=== PATIENT | female | born 1965 | race Caucasian/White ===

== ENCOUNTER 2020-04-21 14:36 | Emergency (ER) | payer MEDICARE, SELFPAY ==
[2020-04-21 14:50] VITALS: BP 135/88; PULSE 88; RESP 18; TEMP 36.8; O2SAT 99; BMI 41.0
--- NOTE | 2020-04-21 15:29 | XRR_ITS ---
PROCEDURE INFORMATION: Exam: XR Chest, 1 View Exam date and time: 04/21/2020 3:30 PM Age: 55 years old Clinical indication: Cough and shortness of breath; Patient HX: C/O sob/cough; Additional info: Dyspnea/cough TECHNIQUE: Imaging protocol: XR of the chest Views: 1 view. COMPARISON: No relevant prior studies available. FINDINGS: Lungs: The lungs are hyperinflated with mild basilar volume loss and vascular crowding. Pulmonary vascularity is within normal limits. No consolidation. Pleural space: Unremarkable. No pleural effusion. No pneumothorax. Heart/Mediastinum: There is borderline cardiomegaly. Bones/joints: No acute abnormality. XR/XR chest 1V portable [id number] IMPRESSION: No acute findings.
--- NOTE | 2020-04-21 15:30 | ED_ITS ---
HPI - URI/Sore Throat General: Chief Complaint: Upper Respiratory Infection Stated Complaint: cabrera/face pain/n/v Time Seen by Provider: 04/21/20 15:12 History of Present Illness: HPI Narrative: 55-year-old female comes in complaining of sinus congestion and drainage she said intermittently for the last 2 weeks she did have some fever and diarrhea initially however that resolved. She is having a lot of nasal drainage to the point where she throws up at times. She also had some headache and facial pain. She states she frequently has sinus problem. She has been coughing up some clear mucus and occasionally the drainage seems to trigger some vomiting. She tried some various [id number] remedies with no relief MD elicited complaint: fever, cough, nasal congestion and sinus pain Pertinent past history: sinusitis Onset (ago): week(s) Consistency: constant and progressively worsening Severity: moderate Description of mucous: clear Able to tolerate fluids by mouth: Yes Relieving factors: nothing Associated symptoms: Reports chills, congestion, cough, diarrhea (Transient resolved), fever(s) (Initially had subjective fevers resolved), myalgias, nasal congestion, rhinorrhea, sinus pain and vomiting; Deny abdominal pain, change in voice, chest pain, epistaxis or ear or mastoid pain Treatments prior to arrival: cold medicine Review of Systems Const: Reports: fever(s) (Initially had subjective fevers resolved) and chills ENMT: Reports: nasal congestion and sinus pain; Denies: ear or mastoid pain or epistaxis Card: Denies: chest pain Resp: Denies: dyspnea, productive cough or non-productive cough GI: Reports: vomiting and diarrhea (Transient resolved); Denies: abdominal pain : Denies: flank pain, difficulty voiding, dysuria, urinary frequency or urinary urgency Skin/Breast: Denies: rash or pruritus PFSH ED PFSH: Medical History (Updated 04/21/20 @ 16:49 by Edmundo Cabello DO) Chronic back pain Recurrent sinusitis Surgical History (Updated 04/21/20 @ 15:33 by Edmundo Cabello DO) History of hernia surgery Hx of tubal ligation Social History (Updated 04/21/20 @ 15:33 by Edmundo Cabello DO) Smoking and tobacco status: never smoked Alcohol intake: never Physical Exam Const: COMMON NORMALS: no acute distress GENERAL APPEARANCE: cooperative and comfortable ORIENTATION/CONSCIOUSNESS: Yes awake, Yes oriented to person, Yes oriented to place and Yes oriented to time HENMT: COMMON NORMALS: normocephalic, atraumatic and hearing grossly normal bilaterally HEAD & SCALP: normocephalic and atraumatic Neck/C-Spine: COMMON NORMALS: no JVD Resp: AUSCULTATION: rhonchi right upper Cardio: COMMON NORMALS: no JVD, regular rate, regular rhythm and No murmurs present (Cardio) RATE: regular rate RHYTHM: regular rhythm GI: COMMON NORMALS: Soft to palpation and No hepatosplenomegaly present AUSCULTATION: Yes normoactive bowel sounds PALPATION: Yes Soft to palpation, No Tenderness to palpation present (GI), No Guarding due to palpation present (GI) and Yes No hepatosplenomegaly present Extremity: COMMON NORMALS: normal to inspection, capillary refill normal, no clubbing, cyanosis or edema, no calf tenderness and no pedal edema Neuro: SENSORIUM/ORIENTATION: Yes oriented to person, Yes oriented to place and Yes oriented to time Skin: COMMON NORMALS: no rashes or lesions noted GENERAL SKIN EXAM: no rashes or lesions noted Course Vital Signs: Vital signs: Vital Signs Temperature 98.2 F 04/21/20 14:50 Pulse Rate 88 04/21/20 14:50 Respiratory Rate 18 04/21/20 14:50 Blood Pressure 135/88 04/21/20 14:50 Pulse Oximetry 99 04/21/20 14:50 MDM - URI/Sore Throat MDM Narrative: Medical decision making narrative: Patient had a visitor with her. Once the order was given for COVID swab visitor was asked to leave. He was then asked 2 more times to leave by the staff and he refused.. She told the nurses that if the visitor was not allowed to stay he would also she would also leave. Staff attempted to convince her to stay she left the way without the opportunity for me to discuss with her. Patient essentially eloped from the emergency room we are unable to find her to get her signed AMA papers nurses trying to contact her because she left with an IV in site. Lab Data: Labs: Lab Results 04/21/20 Range/Units 16:05 WBC 5.3 (4.0-10.0) 10^3/ uL RBC 4.60 (4.1-5.3) 10^6/u L Hgb 14.1 (11.5-15.3) g/dL Hct 42.6 (37.0-47.0) % MCV 92.6 (81-99) fL MCH 30.7 (28.0-34.0) pg MCHC 33.1 (30.0-36.0) g/dL RDW 12.7 (12.1-15.1) % Plt Count 247 (130-400) 10^3/c mm MPV 11.3 H (7.4-10.4) fL Neut % (Auto) 51.4 % Lymph % (Auto) 39.8 % [place] % (Auto) 7.6 % Eos % (Auto) 0.8 % Baso % (Auto) 0.2 % Neut # (Auto) 2.70 (1.8-7.7) 10^3/u L Lymph # (Auto) 2.1 (0.8-4.8) 10^3/u L [place] # (Auto) 0.4 (0.2-0.9) 10^3/u L Eos # (Auto) 0.0 (0.0-0.8) 10^3/u L Baso # (Auto) 0.0 (0.0-0.1) 10^3/u L Nucleated RBC % (a uto) 0 % Nucleated RBCs # 0.0 /100WBC Discharge Plan Discharge Patient Disposition: Left Against Medical Advice Clinical Impression: Upper respiratory infection Condition: Stable Coding Level of Care Code ED Sales And Marketing Executive for [facility] Fwd Exam Comprehensive
[2020-04-21 16:16] LABS: Basophils % 0.2 %; Eosinophils % 0.8 %; Hematocrit 42.6 % (37.0-47.0); Hemoglobin 14.1 g/dL (11.5-15.3); Lymphocytes # 2.1 10^3/uL (0.8-4.8); Lymphocytes % 39.8 %; Mean Corpuscular HGB Conc 33.1 g/dL (30.0-36.0); Mean Corpuscular Hemoglobin 30.7 pg (28.0-34.0); Mean Corpuscular Volume 92.6 fL (81-99); Mean Platelet Volume 11.3 fL (7.4-10.4); Monocytes # 0.4 10^3/uL (0.2-0.9); Monocytes % 7.6 %; Neutrophils % 51.4 %; Nucleated Red Blood Cells % 0 %; Platelet Count 247 10^3/cmm (130-400); Red Cell Distribution Width 12.7 % (12.1-15.1); White Blood Count 5.3 10^3/uL (4.0-10.0)
--- NOTE | 2020-04-21 16:44 | PC.NURSE ---
Pt is under COVID precautions for being swabbed, pt visitor has been asked multiple times to leave per hospital policy. Pt states absolutely not he is not leaving. We eat after each other, we drink after each other and when I leave it will be with him. Pt educated again on hospital policy that anyone under PUI cannot have a visitor. Pt then stated if he leaves, then I'm going to leave too . Pt advised to stay for completion of treatment, pt very angry and declined. Pt instructed not to leave with the IV in her arm, pt left anyways and was very belligerant. Dr Cabello notified, attempts to stop pt from leaving with IV unsuccessful.
--- NOTE | 2020-04-21 16:58 | PC.NURSE ---
Pt left AMA at 1645, unable to find IV catheter in room, charge entry notified.
[2020-04-21 17:02] LABS: Alanine Aminotransferase 19 U/L (0-33); Albumin Level 4.4 g/dL (3.5-5.2); Alkaline Phosphatase 84 IU/L (35-105); Anion Gap 14.5 (5-19); Aspartate Amino Transferase 24 U/L (0-32); Blood Urea Nitrogen 14 mg/dL (6-20); Calcium 9.1 mg/dL (8.5-10.5); Carbon Dioxide 23 mmol/L (22-29); Chloride 107 mmol/L (98-107); Globulin 2.9 g/dL (1.3-4.6); Glucose 107 mg/dL (65-115); Osmolality Calculated 293 mOsm/kg (285-295); Potassium 3.5 mmol/L (3.5-5.1); Sodium 141 mmol/L (136-145); Total Bilirubin 0.6 mg/dL (0.15-1.2); Total Protein 7.3 g/dL (6.6-8.7)
[2020-04-25 03:33] LABS: Quest SARS-CoV-2 RNA DETECTED (NOT DETECTED)
== END 2020-04-21 16:59 | disposition left against medical advice (07) ==
PROVIDERS: Emergency Provider Family Medicine
DX: J06.9 Acute upper respiratory infection, unspecified (principal); Z53.21 Procedure and treatment not carried out due to patient leaving prior to being seen by health care provider; U07.1 COVID-19
CPT/HCPCS: 12345; 71045; 80053; 85025; 87635; 99282; 99283

== ENCOUNTER 2022-04-26 13:20 | Emergency (ER) | payer MEDICARE, SELFPAY ==
[2022-04-26 14:05] VITALS: BP 107/67; PULSE 86; RESP 18; TEMP 36.5; O2SAT 99; BMI 22.0
--- NOTE | 2022-04-26 16:00 | ED_ITS ---
HPI - General Adult General: Chief complaint: General Medical Stated complaint: Cat scratch injury Time Seen by Provider: 04/26/22 15:59 History of Present Illness: 57-year-old female comes in today with concerns of lymph swelling to the left axilla. Patient reports feeling ill about 2 weeks ago and then noticing the lymph swelling. Patient was evaluated in the emergency department of another facility and was recommended to have a biopsy of the lymph node. Patient believes that this is more apt to be an infection and wishes to be evaluated further for infection versus having the biopsy. Patient appears nontoxic. Patient had taken 3 days worth of Cipro. Patient states that she has had tick bites and also has cats and is concerned for's cat scratch fever. Associated symptoms: Deny chest pain, dyspnea, nausea or vomiting Review of Systems Const: Reports: fever(s) and body aches Card: Denies: chest pain Resp: Denies: dyspnea GI: Denies: nausea or vomiting Jose/Lymph: Reports: enlarged lymph nodes [facility] ED PFSH: Medical History (Updated 04/26/22 @ 16:10 by MARLEY Gilmore) Chronic back pain Recurrent sinusitis Surgical History (Updated 04/21/20 @ 15:33 by Edmundo Cabello DO) History of hernia surgery Hx of tubal ligation Social History (Updated 04/21/20 @ 15:33 by Edmundo Cabello DO) Smoking and tobacco status: never smoked Alcohol intake: never Physical Exam Const: COMMON NORMALS: alert HENMT: COMMON NORMALS: normocephalic HEAD & SCALP: normocephalic Neck/C-Spine: COMMON NORMALS: full ROM Lymph: LYMPHATIC: lymphadenopathy (Left axilla) Resp: COMMON NORMALS: normal respiratory effort Cardio: COMMON NORMALS: regular rate RATE: regular rate Extremity: COMMON NORMALS: normal to inspection Neuro: SENSORIUM/ORIENTATION: Yes alert Skin: COMMON NORMALS: turgor normal GENERAL SKIN EXAM: turgor normal Course Vital Signs: Vital signs: Vital Signs Temperature 97.7 F 04/26/22 14:05 Pulse Rate 86 04/26/22 14:05 Respiratory Rate 18 04/26/22 14:05 Blood Pressure 107/67 04/26/22 14:05 Pulse Oximetry 99 04/26/22 14:05 Oxygen Delivery Me thod 04/26/22 14:05 MDM - General Adult Medical Decision Making 57-year-old female comes in today for concerns of lymph swelling to the left axilla. Patient was concern for cat scratch fever. On exam patient has a tender enlarged lymph node to the left axilla. Patient moves all extremities well. No other signs of infection or abnormality was noted. Patient had reported some prior flulike symptoms before discovering the lymph swelling. Differential diagnosis includes but not limited to reactive lymph node due to infection, lymphoma, other cancer. CBC was unremarkable. Outstanding labs will be a Bartonella and tick panel. We will go ahead and start patient on doxycycline 100 mg twice a day for 14 days. Reviewed reasoning behind the biopsy with the patient that it may be still within her best interest to get the biopsy for further evaluation. Patient reported understanding and agreed to plan and will follow-up with primary care or specialist. Lab Data : 04/26/22 16:15 04/26/22 16:15 Laboratory Results WBC 6.6 10^3/uL (4.0-10.0) 04/26/22 16:15 RBC 4.30 10^6/uL (4.1-5.3) 04/26/22 16:15 Hgb 13.5 g/dL (11.5-15.3) 04/26/22 16:15 Hct 40.5 % (37.0-47.0) 04/26/22 16:15 MCV 94.2 fl (81-99) 04/26/22 16:15 MCH 31.4 pg (28.0-34.0) 04/26/22 16:15 MCHC 33.3 g/dL (30.0-36.0) 04/26/22 16:15 RDW 12.4 % (12.1-15.1) 04/26/22 16:15 Plt Count 351 10^3/cmm (130-400) 04/26/22 16:15 MPV 10.8 fL (7.4-10.4) H 04/26/22 16:15 Neut % (Auto) 59.5 % 04/26/22 16:15 Lymph % (Auto) 31.0 % 04/26/22 16:15 [place] % (Auto) 6.7 % 04/26/22 16:15 Eos % (Auto) 2.0 % 04/26/22 16:15 Baso % (Auto) 0.6 % 04/26/22 16:15 Neut # (Auto) 3.94 10^3/uL (1.8-7.7) 04/26/22 16:15 Lymph # (Auto) 2.1 10^3/uL (0.8-4.8) 04/26/22 16:15 [place] # (Auto) 0.4 10^3/uL (0.2-0.9) 04/26/22 16:15 Eos # (Auto) 0.1 10^3/uL (0.0-0.8) 04/26/22 16:15 Baso # (Auto) 0.0 10^3/uL (0.0-0.1) 04/26/22 16:15 Nucleated RBC % (auto) 0 % 04/26/22 16:15 Nucleated RBCs # 0.0 /100WBC 04/26/22 16:15 Discharge Plan Discharge Patient Disposition: Home Clinical Impression: Lymphadenopathy Condition: Stable Prescriptions: New doxycycline monohydrate 100 mg capsule 100 mg PO BID 14 Days Qty: 28 0RF Discharge Orders: Discharge ED (Routine); Ordered 04/26/22 Ordered By: Hong De La Torre Patient Instructions: Lymphadenopathy (ED) Activity Restrictions/Additional Instructions: Take antibiotic as directed. Drink plenty of water with medication. Follow-up with primary care for further instruction. Return to ER for new concerns. Coding Level of Care Code ED Research Physician for [facility]
[2022-04-26 16:24] LABS: Basophils % 0.6 %; Eosinophils # 0.1 10^3/uL (0.0-0.8); Hematocrit 40.5 % (37.0-47.0); Hemoglobin 13.5 g/dL (11.5-15.3); Lymphocytes # 2.1 10^3/uL (0.8-4.8); Mean Corpuscular HGB Conc 33.3 g/dL (30.0-36.0); Mean Corpuscular Hemoglobin 31.4 pg (28.0-34.0); Mean Corpuscular Volume 94.2 fl (81-99); Mean Platelet Volume 10.8 fL (7.4-10.4); Monocytes # 0.4 10^3/uL (0.2-0.9); Monocytes % 6.7 %; Neutrophils # 3.94 10^3/uL (1.8-7.7); Neutrophils % 59.5 %; Nucleated Red Blood Cells % 0 %; Platelet Count 351 10^3/cmm (130-400); Red Cell Distribution Width 12.4 % (12.1-15.1); White Blood Count 6.6 10^3/uL (4.0-10.0)
[2022-04-26 16:45] LABS: Alanine Aminotransferase 8 U/L (0-33); Albumin Level 4.1 g/dL (3.5-5.2); Alkaline Phosphatase 86 U/L (35-105); Anion Gap 12.3 (5-19); Aspartate Amino Transferase 9 U/L (0-32); Blood Urea Nitrogen 7 mg/dL (6-20); Calcium 9.5 mg/dL (8.5-10.5); Carbon Dioxide 25 mmol/L (22-29); Chloride 95 mmol/L (98-107); Globulin 3.3 g/dL (1.3-4.6); Glomerular Filtration Rate 163.4 mL/min (90-130); Glucose 90 mg/dL (65-115); Osmolality Calculated 266 mOsm/kg (285-295); Potassium 3.3 mmol/L (3.5-5.1); Sodium 129 mmol/L (136-145); Total Bilirubin 0.2 mg/dL (0.15-1.2); Total Protein 7.4 g/dL (6.6-8.7)
[2022-04-28 14:22] LABS: Lyme AB Screen <0.90 index
[2022-05-01 15:36] LABS: RMSF IGG DETECTED; RMSF IGM NOT DETECTED
[2022-05-01 21:48] LABS: E. Chaffeensis AB IGG <1:64; E. Chaffeensis AB IGM <1:20
[2022-05-03 20:13] LABS: Bartonella Henselae IgG AB NEGATIVE; Bartonella Henselae IgM AB NEGATIVE; Bartonella Quintana IgG AB NEGATIVE
[2023-04-07 18:16] LABS: Bartonella Quintana IgM AB NEGATIVE
== END 2022-04-26 16:31 | disposition home or self-care (01) ==
PROVIDERS: Emergency Provider Nurse Practitioner Family
DX: R59.1 Generalized enlarged lymph nodes (principal)
CPT/HCPCS: 80053; 85025; 86611; 86618; 86666; 86757; 99283

== ENCOUNTER 2022-04-28 16:46 | Emergency (ER) | payer MEDICARE, SELFPAY ==
[2022-04-28 17:00] VITALS: BP 115/60; PULSE 74; RESP 16; TEMP 36.6; O2SAT 98; BMI 22.4
--- NOTE | 2022-04-28 19:03 | W.ED.GENADLT ---
HPI - General Adult General: Chief complaint: General Medical Stated complaint: Return visit, infection Time Seen by Provider: 04/28/22 19:03 History of Present Illness: 57-year-old female comes in today for concerns of sinus pressure, left side facial tenderness, and malaise. Patient was seen on Thursday and blood work was taken for cat scratch fever and a tick panel. Patient reports that she felt worse so she came back to be evaluated again. Patient appears nontoxic. Patient appears mildly unwell. Patient appears in no pain. Associated symptoms: Reports headache(s) and nausea; Deny dyspnea Review of Systems ENMT: Reports: sinus pain Resp: Denies: dyspnea GI: Reports: nausea Neuro: Reports: headache(s) PFSH ED PFSH: Medical History (Updated 04/28/22 @ 21:55 by MARLEY Gilmore) Chronic back pain Recurrent sinusitis Surgical History (Updated 04/21/20 @ 15:33 by Edmundo Cabello DO) History of hernia surgery Hx of tubal ligation Social History (Updated 04/21/20 @ 15:33 by Edmundo Cabello DO) Smoking and tobacco status: never smoked Alcohol intake: never Physical Exam Const: COMMON NORMALS: alert HENMT: COMMON NORMALS: normocephalic HEAD & SCALP: normocephalic Resp: COMMON NORMALS: normal respiratory effort and clear to auscultation bilaterally AUSCULTATION: clear to auscultation bilaterally Cardio: COMMON NORMALS: regular rate and regular rhythm RATE: regular rate RHYTHM: regular rhythm : COMMON NORMALS: Yes no CVA tenderness BLADDER/KIDNEY EXAM: Yes no CVA tenderness Back/Pelvis: COMMON NORMALS: no CVA tenderness Extremity: COMMON NORMALS: full ROM Neuro: SENSORIUM/ORIENTATION: Yes alert Skin: COMMON NORMALS: no rashes or lesions noted GENERAL SKIN EXAM: no rashes or lesions noted Course Vital Signs: Vital signs: Vital Signs Temperature 97.8 F 04/28/22 17:00 Pulse Rate 74 04/28/22 17:00 Respiratory Rate 16 04/28/22 17:00 Blood Pressure 115/60 04/28/22 17:00 Pulse Oximetry 98 04/28/22 17:00 Oxygen Delivery Me thod 04/28/22 17:00 MDM - General Adult Medical Decision Making 57-year-old female comes in today for complaints of left side facial pain along with malaise. Patient was seen 2 days ago and was evaluated for tickborne illness and cat scratch fever with lab testing. Patient was started on doxycycline but since being on doxycycline she has felt more ill with nasal drainage and sinus pressure. On exam bilateral TMs are clear. Posterior pharynx shows some clear drainage. Patient does have some left side facial tenderness. Differential diagnosis includes dehydration, migraine, sinus headache, upper respiratory infection. Review of the record noted that patient had some low sodium and potassium on Thursday labs. Concern the patient's electrolytes may have worsened we went ahead and gave her 1 L of saline to correct dehydration and evaluated labs BMP, CRP and TSH. TSH was unremarkable. BMP showed him significant improvement in sodium and potassium. CRP was 3.0. No concern for temporal arteritis as temporal artery was nontender to palpation and CRP was low. Suspect may be a sinus headache versus migraine. Patient some improvement after fluids and medication but continued to have pressure in that left sinus. Hopefully patient will have some improvement with the dose of steroid we given her through the IV. Recommended continuing doxycycline and recheck regarding the outstanding labs. Patient stated understanding and agreed to plan. Lab Data : 04/28/22 20:55 Laboratory Results Sodium 136 mmol/L (136-145) 04/28/22 20:55 Potassium 3.8 mmol/L (3.5-5.1) 04/28/22 20:55 Chloride 105 mmol/L (98-107) 04/28/22 20:55 Carbon Dioxide 21 mmol/L (22-29) L 04/28/22 20:55 Anion Gap 13.8 (5-19) 04/28/22 20:55 BUN 13 mg/dL (6-20) 04/28/22 20:55 Creatinine 0.4 mg/dL (0.5-0.9) L 04/28/22 20:55 GFR Calculation 163.4 mL/min (90-130) H 04/28/22 20:55 Glucose 83 mg/dL (65-115) 04/28/22 20:55 Calculated Osmolality 281 mOsm/kg (285-295) L 04/28/22 20:55 Calcium 9.3 mg/dL (8.5-10.5) 04/28/22 20:55 C-Reactive Protein 3.0 mg/L (0.0-4.9) 04/28/22 20:55 TSH 5.59 uIU/mL (0.27-4.20) H 04/28/22 20:55 Influenza Type A Ag negative (Negative) 04/28/22 19:30 Influenza Type B Ag negative (Negative) 04/28/22 19:30 SARS-CoV-2 Ag (Rapid) negative (Negative) 04/28/22 19:30 Discharge Plan Discharge Patient Disposition: Home Clinical Impression: Dehydration Headache Qualifiers: Headache type: unspecified Headache chronicity pattern: acute headache Intractability: not intractable Qualified Code(s): R51.9 - Headache, unspecified Condition: Stable Prescriptions: No Action doxycycline monohydrate 100 mg capsule 100 mg PO BID 14 Days Qty: 28 0RF Discharge Orders: Discharge ED (Routine); Ordered 04/28/22 Ordered By: Hong De La Torre Discharge Diet: Usual diet Discharge Activity: Increase activity as tolerated Patient Instructions: Acute Headache (ED) Activity Restrictions/Additional Instructions: Continue with antibiotic. Activity as tolerated. Follow-up with primary care in 1 to 3 days for recheck. Return to ED for new concerns. Coding Level of Care Code ED [place] [place] Sewer for [facility]
[2022-04-28 20:00] LABS: Influenza A by IFA negative (Negative); Influenza B by IFA negative (Negative)
[2022-04-28 20:01] LABS: SARS Covid-2 Antigen negative (Negative)
[2022-04-28] MEDS: ketorolac 30 mg/mL INJ 15 MG IVP (20:29)
[2022-04-28] MEDS: dexamethasone 10 mg/mL INJ 6 MG IVP (20:29)
[2022-04-28] MEDS: sodium chloride 0.9% 1,000 ML 999 ML IV (20:29)
[2022-04-28] MEDS: ondansetron 2 mg/ML SDV 2 mL 4 MG IVP (20:29)
[2022-04-28 21:35] LABS: Blood Urea Nitrogen 13 mg/dL (6-20); Calcium 9.3 mg/dL (8.5-10.5); Carbon Dioxide 21 mmol/L (22-29); Chloride 105 mmol/L (98-107); Glomerular Filtration Rate 163.4 mL/min (90-130); Glucose 83 mg/dL (65-115); Osmolality Calculated 281 mOsm/kg (285-295); Sodium 136 mmol/L (136-145); Thyroid Stimulating Hormone 5.59 uIU/mL (0.27-4.20)
[2022-04-28 21:45] LABS: Anion Gap 13.8 (5-19); Potassium 3.8 mmol/L (3.5-5.1)
== END 2022-04-28 22:05 | disposition home or self-care (01) ==
PROVIDERS: Emergency Provider Nurse Practitioner Family
DX: R51.9 Headache, unspecified (principal); E86.0 Dehydration; Z20.822 Contact with and (suspected) exposure to COVID-19
CPT/HCPCS: 80048; 84443; 86140; 87426; 87804; 96361; 96374; 96375; 99284; J1100; J1885; J2405; J7030

== ENCOUNTER → 2022-05-14 12:21 | Outpatient (BNVA) | payer MEDICARE, SELFPAY | PROVIDERS: Visit Provider Family Medicine | DX: R59.0 Localized enlarged lymph nodes (principal); E03.9 Hypothyroidism, unspecified; R79.89 Other specified abnormal findings of blood chemistry; Z12.31 Encounter for screening mammogram for malignant neoplasm of breast; E87.1 Hypo-osmolality and hyponatremia | CPT/HCPCS: 80053; 84439; 84443; 85025 ==

== ENCOUNTER 2022-05-18 16:58 | Emergency (ER) | payer MEDICARE, SELFPAY ==
[2022-05-18 17:03] VITALS: BMI 23.4
[2022-05-18 17:19] VITALS: BP 95/65; PULSE 80; RESP 20; TEMP 36.7; O2SAT 99
--- NOTE | 2022-05-18 17:22 | ED_ITS ---
HPI - Fever General: Chief Complaint: Fever Stated Complaint: Fever, Nausea, Cold chills, Head pain Time Seen by Provider: 05/18/22 17:14 History of Present Illness: 57-year-old female comes in today with complaints of sinus symptoms and fever starting today. Patient reports a temperature up to 103. Patient appears unwell but not toxic. Patient also reports some redness to a swelling under her left axilla. Patient has been seen for this area approximately 1 month ago and at that time had lab for tick panels and Bartonella. Bartonella was negative at the time. Patient did test positive for [place] spotted fever. Patient reports that she has noticed some redness to the axillary node. Associated symptoms: Reports sinus pain; Deny chest pain, nausea or vomiting Review of Systems Const: Denies: fever(s) ENMT: Reports: epistaxis and sinus pain Card: Denies: chest pain Resp: Denies: dyspnea GI: Denies: nausea or vomiting : Denies: difficulty voiding Skin/Breast: Denies: rash PFSH ED PFSH: Medical History Chronic back pain Hypothyroid Recurrent sinusitis Surgical History History of hernia surgery Hx of tubal ligation Family History (Updated 05/14/22 @ 11:57 by Gordon Araiza MD) Mother CAD (coronary artery disease) Lung disease Cancer parotid gland tumor breast lumps Father Cancer hepatic cancer Family/Other Cancer breast CA Social History (Updated 05/14/22 @ 11:57 by Gordon Araiza MD) Smoking and tobacco status: never smoked Alcohol intake: never Female Reproductive History: Date of menopause: 07/16/16 Physical Exam Const: COMMON NORMALS: alert HENMT: COMMON NORMALS: TM's normal bilaterally FACE & SINUS: Facial tenderness on exam of face and sinuses NOSE: Nasal discharge present TYMPANIC MEMBRANE: TM's normal bilaterally THROAT: posterior oropharynx abnormal erythema (Mild, light drainage) Eye: GENERAL EYE: appearance normal, both eyes and all related structures Resp: COMMON NORMALS: normal respiratory effort Cardio: COMMON NORMALS: regular rate RATE: regular rate GI: COMMON NORMALS: Soft to palpation PALPATION: Yes Soft to palpation : COMMON NORMALS: Yes no CVA tenderness BLADDER/KIDNEY EXAM: Yes no CVA tenderness Back/Pelvis: COMMON NORMALS: no CVA tenderness Extremity: LEFT UPPER EXTREMITY: Yes shoulder joint (Axilla has a enlarged mass with some centralized erythema) Neuro: SENSORIUM/ORIENTATION: Yes alert Skin: COMMON NORMALS: no rashes or lesions noted GENERAL SKIN EXAM: no rashes or lesions noted Course ED course: 1819, patient continues to have some light sensitivity and headache with her sinus pressure. I went ahead and ordered her 10 mg of Reglan p.o. in the event that this may be a migraine type headache patient is having. Patient agreed to plan. Vital Signs: Vital signs: Vital Signs Temperature 98.0 F 05/18/22 17:19 Pulse Rate 75 05/18/22 18:32 Respiratory Rate 18 05/18/22 18:32 Blood Pressure 95/65 05/18/22 17:19 Pulse Oximetry 97 05/18/22 18:32 Oxygen Delivery Me thod 05/18/22 17:19 MDM - Fever Medical Decision Making 57-year-old female comes in today with complaints of sinus headache and fever. Patient also reports some redness to the enlarged node to the left axilla. On exam patient has some mild drainage in the nostrils along with some postnasal drip. Tenderness is noted in the maxillary sinuses on palpation. Bilateral TMs are normal. Lungs have some inspiratory wheezing. Vital signs are normal. Examination of the axilla notes a lymph node that has grown since I had seen it back in the middle of April and now demonstrates some erythema centrally with tenderness. Differential diagnosis includes upper respiratory infection, influenza, COVID-19, upper respiratory infection rhinosinusitis. Differential diagnosis for the enlarged lymph node includes lymphadenitis, cancer, abscess. We will start patient on doxycycline due to the erythema and concern for infection in the lymph node area. I also placed for case management to have patient follow-up with surgeon for incision and drainage versus excision of the mass. Patient was agreeable to the plan. Doxycycline should cover for a rhinosinusitis. Patient was also given some ondansetron for nausea related to the antibiotic. Lab Data Radiology Impressions Chest X-Ray 05/18/22 17:38 IMPRESSION: No acute findings. Laboratory Results Influenza Type A Ag negative (Negative) 05/18/22 17:57 Influenza Type B Ag negative (Negative) 05/18/22 17:57 SARS-CoV-2 Ag (Rapid) negative (Negative) 05/18/22 17:57 Discharge Plan Discharge Patient Disposition: Home Clinical Impression: Acute rhinosinusitis, Lymphadenitis Condition: Stable Prescriptions: New doxycycline monohydrate 100 mg capsule 100 mg PO BID 10 Days Qty: 20 0RF ondansetron HCl 4 mg tablet 4 mg PO Q8H PRN (Reason: nausea and vomiting) Qty: 20 0RF No Action medical marijuana inhalation PRN hydrocodone-acetaminophen 5-325 mg tablet 1 tab PO Q4H PRN (Reason: pain) 7 Days Qty: 28 0RF hydroxyzine HCl 50 mg tablet 50 mg PO Q6H PRN (Reason: nausea and vomiting) Qty: 60 0RF Discharge Orders: Discharge ED (Routine); Ordered 05/18/22 Ordered By: Hong De La Torre Referrals: Gordon Araiza MD [Primary Care Provider] - Patient Instructions: Lymphadenitis Activity Restrictions/Additional Instructions: Take doxycycline 100 mg twice a day for the next 10 days. Drink plenty of water with medication. Case management will contact you regarding a follow-up appointment with a surgeon for further treatment of enlarged lymph node. Follow-up with primary care as needed. Return to ED for worsening symptoms such as inability to hold fluids down, uncontrolled pain, increasing redness and swelling of the arm. Coding Level of Care Code ED Early Childhood Teacher Assistant for [facility] Exam Comprehensive
--- NOTE | 2022-05-18 17:38 | XRR_ITS ---
PROCEDURE INFORMATION: Exam: XR Chest Exam date and time: 05/18/2022 6:43 PM Age: 57 years old Clinical indication: Cough and fever and wheezing; Additional info: Cough, fever, wheezing TECHNIQUE: Imaging protocol: Radiologic exam of the chest. Views: 1 view. COMPARISON: CR XR chest 1V portable [id number] 04/21/2020 4:12 PM FINDINGS: Lungs: Unremarkable. No consolidation. Pleural spaces: Unremarkable. No pleural effusion. No pneumothorax. Heart/Mediastinum: Unremarkable. No cardiomegaly. Bones/joints: Unremarkable. XR/XR chest 1V portable [id number] IMPRESSION: No acute findings.
[2022-05-18] MEDS: ondansetron 4 MG Tablet PO (17:55)
[2022-05-18] MEDS: doxycycline 100 mg Tablet PO (17:55)
[2022-05-18 18:20] LABS: Influenza A by IFA negative (Negative); Influenza B by IFA negative (Negative)
[2022-05-18 18:21] LABS: SARS Covid-2 Antigen negative (Negative)
[2022-05-18] MEDS: metoclopramide 10 mg Tablet PO (18:30)
[2022-05-18 18:32] VITALS: PULSE 75; RESP 18; O2SAT 97
--- NOTE | 2022-05-19 11:47 | DCPLANNER ---
Addendum entered by Marilynn Ordonez 05/22/22 16:38: Patient had a follow up appointment scheduled with general surgery - patient did attend appointment. Original Note: brood hatchery manager had message to schedule a follow up appointment for patient with general surgery. brood hatchery manager sent patients information to the front office staff at general surgery. Patients information will be printed and reviewed. Clinic will call patient with appointment information.
== END 2022-05-18 18:34 | disposition home or self-care (01) ==
PROVIDERS: Emergency Provider Nurse Practitioner Family; PCP Family Medicine
DX: J01.90 Acute sinusitis, unspecified (principal); I88.9 Nonspecific lymphadenitis, unspecified
CPT/HCPCS: 71045; 87426; 87804; 99283; J8597; Q0162

== ENCOUNTER → 2022-05-20 11:50 | Outpatient (BNVA) | payer MEDICARE, SELFPAY | PROVIDERS: PCP Family Medicine; Visit Provider Surgery | DX: R22.32 Localized swelling, mass and lump, left upper limb (principal) | CPT/HCPCS: 99203 ==

== ENCOUNTER 2022-05-22 08:09 | Day surgery (SDC) | payer MEDICARE, SELFPAY ==
[2022-05-21 10:06] VITALS: BMI 24.4
[2022-05-22] VITALS (15 sets, daily range): BP systolic 96–130; BP diastolic 45–77; PULSE 65–88; RESP 13–24; TEMP 36.6–36.8; O2SAT 97–100
[2022-05-22] MEDS: sodium chloride 0.9% 1,000 ML 30 ML IV (08:32)
--- NOTE | 2022-05-22 09:34 | ANES.PREANE2 ---
Pre-Anesthetic Assessment Height/Weight: Height 1.52 m Weight 56.699 kg Temp Pulse Resp BP Pulse Ox O2 Del Method 98.2 F 74 18 96/45 98 05/22/22 08:21 05/22/22 08:21 05/22/22 08:21 05/22/22 08:21 05/22/22 08:21 05/22/22 08:22 Preop Diagnosis: left axillary lymphadenopathy Operation Date: 05/22/22 09:45 Pro[place] Procedures p [id number] excision of left axillary massR22.32(Not Applicable) - Gil Garcia DO Familial anesthetic complications: none Was Beta Hyun taken within 24 hours: N/A Was Clonidine taken within 24 hours: N/A Last intake: Intake Last Liquid Date 05/21/22 Last Liquid Time 22:00 Last Solid Date 05/21/22 Last Solid Time 19:00 Social Tobacco (Smokes marty ) and No alcohol Exam alert, oriented x 3 and regular rate & rhythm Airway Submandibular: within normal limits Cervical ROM: within normal limits Mallampati: Class II Dentition: false Metabolic Thyroid Disease Anesthetic Plan ASA status: 2 Anesthesia: Choice Medications/Allergies Home Medications Medication Instructions Recorded Confirmed Last Taken Type hydrocodone 5 mg-acetaminophen 325 1 tab PO Q4H PRN pain 7 days #28 05/12/22 05/22/22 05/22/22 05:30 Rx mg tablet tabs hydroxyzine HCl 50 mg tablet 50 mg PO Q6H PRN nausea and 05/12/22 05/22/22 05/22/22 05:30 Rx vomiting #60 tabs medical marijuana 100 ml inhalation PRN PRN Pain 05/14/22 05/20/22 Unknown History doxycycline monohydrate 100 mg 100 mg PO BID 10 days #20 caps 05/18/22 05/22/22 05/21/22 Rx capsule ondansetron HCl 4 mg tablet 4 mg PO Q8H PRN nausea and 05/18/22 05/22/22 05/21/22 Rx vomiting #20 tabs Allergies Allergy/AdvReac Type Severity Reaction Status Date / Time No Known Allergies Allergy Verified 05/21/22 10:03 Current Medications Generic Name Dose Route Start Last Admin Trade Name Freq PRN Reason Stop Dose Admin Sodium Chloride 1,000 mls @ 30 mls/hr 05/22/22 08:30 05/22/22 08:32 Sodium Chloride 0.9% IV 05/23/22 08:29 30 mls/hr .Q24H ALTAF Administration PFSH Anesthesia Medical History Chronic back pain Hypothyroid Recurrent sinusitis Surgical History History of hernia surgery Hx of colonoscopy Hx of tubal ligation Family History Mother CAD (coronary artery disease) Lung disease Cancer parotid gland tumor breast lumps Father Cancer hepatic cancer Family/Other Cancer breast CA Social History Smoking and tobacco status: never smoked Alcohol intake: never Data Anesthesia Cardiac Studies: No Data to Display
--- NOTE | 2022-05-22 09:42 | W.PM.OPSUD ---
Surgery/Procedure H&P Update DATE OF PROCEDURE: May 22, 2022 DATE H&P PERFORMED: 05/20/22 PREOP DIAGNOSIS: left axillary lymphadenopathy PLANNED PROCEDURE: Operation Date: 05/22/22 09:45 Proposed Procedures p [id number] excision of left axillary massR22.32(Not Applicable) - Gil Garcia DO
[2022-05-22] MEDS: ceFAZolin 2,000 MG in sodium chloride 0.9% (plus) 50 ML 100 MG IV (09:44)
--- NOTE | 2022-05-22 10:18 | PM.OP ---
Operative Report Date of procedure: May 22, 2022 Pre-op diagnosis: Preop Diagnosis left axillary lymphadenopathy Post-op diagnosis: same Procedure done: Excision of subcutaneous mass left axilla Specimens removed/disposition: Skin excision left axilla Surgeon: Dr. Gil Garcia DO Anesthesia: MAC Estimated blood loss (mL): 5 Complications: None apparent Brief History: This is a very pleasant 57-year-old female who has a chronic infection in her left axilla. Excision of the subcutaneous mass was indicated. Risks and benefits were explained and documented. Procedure: The area was inspected prepped and draped in the usual sterile fashion. 1% lidocaine with epinephrine was used to anesthetize the area of concern. A 15 blade scalpel then used to make an elliptical excision measuring 3 centimeters in length. Incision was carried down to subcutaneous tissue and the specimen was passed off. There was significant purulence which was expelled. Incision was probed and flushed with normal saline. Hemostasis was noted. Skin was loosely approximated with 3-0 nylon in an interrupted fashion. Patient tolerated the procedure well.
[2022-05-22] MEDS: fentaNYL 50 mcg/mL INJ 2mL IVP ×2 (10:27→10:43)
[2022-05-22] MEDS: HYDROcodone-acetaminophen 7.5-325 mg Tablet 1 TAB PO (11:37)
--- NOTE | 2022-05-22 15:37 | ANE.PACU2 ---
Inpatient post-anesthesia follow up: Airway intact: Yes Vital signs: Temperature 97.9 F Pulse Rate 71 Respiratory Rate 16 Blood Pressure 130/74 Pulse Oximetry 99 Oxygen Delivery Me thod Room Air Oxygen Flow Rate Fraction of Inspir ed Oxygen Hydration adequate: Yes Nausea and vomiting: No Pain level: 2 Mental status: Baseline
== END 2022-05-22 11:48 | disposition home or self-care (01) ==
PROVIDERS: PCP Family Medicine; Visit Provider Surgery
PROC: (CPT 11403; principal; 2022-05-22 09:35)
DX: R59.1 Generalized enlarged lymph nodes (principal); E03.9 Hypothyroidism, unspecified; L73.2 Hidradenitis suppurativa
CPT/HCPCS: 11403; 88309; J0690; J1100; J1200; J2405; J2704; J3010; J7030

== ENCOUNTER → 2022-06-03 14:03 | Outpatient (BNVA) | payer MEDICARE, SELFPAY | PROVIDERS: PCP Family Medicine; Visit Provider Surgery | DX: L73.2 Hidradenitis suppurativa (principal) | CPT/HCPCS: 99213 ==

== ENCOUNTER → 2022-06-13 11:51 | Outpatient (BNVA) | payer MEDICARE, SELFPAY | PROVIDERS: PCP Family Medicine; Visit Provider Surgery | DX: L73.2 Hidradenitis suppurativa (principal) | CPT/HCPCS: 99213 ==

== ENCOUNTER → 2022-11-05 14:29 | Outpatient (BNVA) | payer MEDICARE, SELFPAY | PROVIDERS: PCP Family Medicine; Visit Provider Family Medicine | DX: M32.9 Systemic lupus erythematosus, unspecified (principal) | CPT/HCPCS: 85651; 86140; 86160; 86162; 86200; 86235; 86255; 86376; 86431; 86705; 86706; 86709; 86803; 87340 ==

== ENCOUNTER → 2022-11-12 14:24 | Outpatient (BNVA) | payer MEDICARE, SELFPAY | PROVIDERS: PCP Family Medicine; Visit Provider Surgery | DX: K43.2 Incisional hernia without obstruction or gangrene (principal); K40.90 Unilateral inguinal hernia, without obstruction or gangrene, not specified as recurrent; K40.91 Unilateral inguinal hernia, without obstruction or gangrene, recurrent | CPT/HCPCS: 99213 ==

== ENCOUNTER 2022-12-18 06:04 | Day surgery (SDC) | payer MEDICARE, SELFPAY ==
[2022-12-16 10:16] VITALS: BMI 27.3
[2022-12-18] VITALS (16 sets, daily range): BP systolic 101–175; BP diastolic 52–103; PULSE 61–86; RESP 16–24; TEMP 36.1–36.8; O2SAT 92–99
[2022-12-18] MEDS: sodium chloride 0.9% 1,000 ML 30 ML IV (06:27)
[2022-12-18] MEDS: scopolamine 1.5 Patch 1 PATCH TRANSDERMA (06:28)
--- NOTE | 2022-12-18 06:50 | P.ANESASSM_ITS ---
Pre-Anesthetic Assessment Height/Weight: Height 1.52 m Weight 63.503 kg Temp Pulse Resp BP Pulse Ox O2 Del Method 98.2 F 71 16 101/56 99 Room Air 12/18/22 06:21 12/18/22 06:21 12/18/22 06:21 12/18/22 06:21 12/18/22 06:21 12/18/22 06:21 Operation Date: 12/18/22 07:00 Proposed Procedures p [id number] lap repair of recurrent incisional hernia, right inguinal hernia and recurrent left inguinal hernias with mesh K43.2, K40.90, K40.91(Not Applicable) - Gil Garcia DO s Laparoscopic Inguinal Hernia Repair(Bilateral) - Gil Garcia DO Familial anesthetic complications: None Was Beta Hyun taken within 24 hours: N/A Was Clonidine taken within 24 hours: N/A Last intake: Intake Last Liquid Date 12/17/22 Last Liquid Time 19:00 Last Solid Date 12/17/22 Last Solid Time 19:00 Social Tobacco and No alcohol [facility] Exam alert, oriented x 3, clear to auscultation bilaterally and regular rate & rhythm Airway Mallampati: Class III Dentition: false Metabolic Thyroid Disease SLE Anesthetic Plan ASA status: 3 Anesthesia: General Risk of > 500 ml blood loss (7ml/kg in children): No Medications/Allergies Home Medications Medication Instructions Recorded Confirmed Last Taken Type medical marijuana 100 ml inhalation PRN PRN Pain 05/14/22 11/12/22 12/17/22 History promethazine 12.5 mg rectal 12.5 mg [place] Q6H PRN nausea and 11/21/22 12/16/22 3 Days Ago Rx suppository vomiting #12 ea ~12/15/22 Allergies Allergy/AdvReac Type Severity Reaction Status Date / Time No Known Allergies Allergy Verified 12/18/22 06:12 Current Medications Generic Name Dose Route Start Last Admin Trade Name Freq PRN Reason Stop Dose Admin Sodium Chloride 1,000 mls @ 30 mls/hr 12/18/22 06:15 12/18/22 06:27 Sodium Chloride 0.9% IV 12/19/22 06:14 30 mls/hr .Q24H ALTAF Administration PFSH Anesthesia Medical History Chronic back pain Hidradenitis suppurativa Hypothyroid Recurrent sinusitis Surgical History History of hernia surgery History of surgery on arm fx left arm Hx of colonoscopy Hx of tubal ligation Family History Mother CAD (coronary artery disease) Lung disease Cancer parotid gland tumor breast lumps Father Cancer hepatic cancer Family/Other Cancer breast CA Social History Smoking and tobacco status: never smoked Alcohol intake: never Substance/Drug Use: current Substance/Drug use frequency: daily Other substance/drug use details: medical card Female Reproductive History Date of menopause: 07/16/16 Data Anesthesia Cardiac Studies: No Data to Display
--- NOTE | 2022-12-18 07:11 | PM.HP ---
Providers/Chief Complaint Primary Care Provider: Gordon Araiza MD Chief Complaint: K43.2, K40.90, K40.91 History of Present Illness Peri Johnson is a 57 year old female Medications/Allergies Home Medications Medication Instructions Recorded Confirmed Last Taken Type medical marijuana 100 ml inhalation PRN PRN Pain 05/14/22 11/12/22 12/17/22 History promethazine 12.5 mg rectal 12.5 mg [place] Q6H PRN nausea and 11/21/22 12/16/22 3 Days Ago Rx suppository vomiting #12 ea ~12/15/22 Allergies Allergy/AdvReac Type Severity Reaction Status Date / Time No Known Allergies Allergy Verified 12/18/22 06:12 PFSH Acute PFSH: Medical History Chronic back pain Hidradenitis suppurativa Hypothyroid Recurrent sinusitis Surgical History History of hernia surgery History of surgery on arm fx left arm Hx of colonoscopy Hx of tubal ligation Family History Mother CAD (coronary artery disease) Lung disease Cancer parotid gland tumor breast lumps Father Cancer hepatic cancer Family/Other Cancer breast CA Social History Smoking and tobacco status: never smoked Alcohol intake: never Substance/Drug Use: current Substance/Drug use frequency: daily Other substance/drug use details: medical card Female Reproductive History: Date of menopause: 07/16/16 Vitals/I&O/Wt Last Vital Signs Temp 98.2 F 12/18/22 06:21 Pulse 71 12/18/22 06:21 Resp 16 12/18/22 06:21 BP 101/56 12/18/22 06:21 Pulse Ox 99 12/18/22 06:21 O2 Del Method Room Air 12/18/22 06:21 Weight last 48 hrs Weight 140 lb A&P Assessment and plan (1) Recurrent left inguinal hernia: (2) Right inguinal hernia: (3) Recurrent incisional hernia: Plan Laparoscopic repair of recurrent incisional hernia, right inguinal hernia and recurrent left inguinal hernias with mesh Recurrent incisional hernia is approximately 3 cm in diameter by physical exam Attestations Medical Necessity Statement*: Home Coding Level of Care Code Acute Code for Chg Fwd Diagnoses Recurrent left inguinal hernia K40.91 Right inguinal hernia K40.90 Recurrent incisional hernia K43.2
[2022-12-18] MEDS: ceFAZolin 2,000 MG in sodium chloride 0.9% (plus) 50 ML 100 MG IV (07:23)
[2022-12-18] MEDS: lidocaine-epi 2% 20 mL INJ 5 ML INJECTION (08:50)
--- NOTE | 2022-12-18 09:21 | P.OP_ITS ---
Operative Report Date of procedure: December 18, 2022 Pre-op diagnosis: Right inguinal hernia Recurrent left inguinal hernia Reducible recurrent incisional hernia Procedure done: Laparoscopic repair of right inguinal hernia, recurrent left inguinal hernia and reducible recurrent incisional hernias with mesh Implants: Right and left large 3D max Bard meshes, 6 inch round Ventralight mesh Specimens removed/disposition: None Surgeon: Dr. Gil Garcia DO Anesthesia: General Estimated blood loss (mL): 5 Complications: None apparent Brief History: Is a very pleasant 57-year-old female who came to my office with a right inguinal hernia, a recurrent left inguinal hernia, and a recurrent incisional hernia. Laparoscopic repairs with mesh was indicated. The risk and benefits were explained and documented. Procedure: Patient was wheeled into the operative room and placed on the OR table in a supine position. Abdomen was inspected prepped and draped in usual sterile fashion. Time-out was performed and all present were in agreement. A 15 blade scalpel was used to make 1.2 centimeter incision infraumbilically. Combination of sharp and blunt dissection was performed down to the anterior rectus sheath which was opened sharply. The dissecting balloon was then inserted into the space of Retzius and blown up. We put the camera into the port and identified that we were in the correct space. I then placed 2 5 millimeter trocars suprapubically in the midline. I then used endokitners to bluntly dissect in the space of Retzius out laterally. An indirect inguinal hernia was identified on the right. Blunt dissection was performed to dissect down the hernia sac until the vas deferens dove medially. A large right inguinal mesh was then placed into the space of Retzius. The mesh was unrolled and tacked once medially at the pubic bone. The mesh laid out nicely over the spermatic cord. An indirect inguinal hernia was identified on the left. Blunt dissection was performed to dissect down the hernia sac until the vas deferens dove medially. A large left inguinal mesh was then placed into the space of Retzius. The mesh was unrolled and tacked once medially at the pubic bone. The mesh laid out nicely over the spermatic cord. I watched the hernia sacs remain in place as insufflation was removed. Incisions were closed with 4 O Vicryl in a subcuticular interrupted fashion. Skin glue was applied. A 15 blade scalp was used to make a 5 millimeter incision left upper quadrant. A Veress needle was placed into the incision and intra-abdominal insufflation was brought to 15 millimeters of mercury. A 5 millimeter trocar was placed into the left lower quadrant. There was a 3 cm recurrent incisional hernia in the epigastrium. A small old mesh was evident at the corner. The energy but device was then used to cut out the hernia sac. A 6 inch ventral light mesh was placed into the abdomen and brought up through the center of the hernia using an the Silvino-Tyree. The mesh was then tacked in place in a double crown fashion. The skeleton of the mesh was removed via the left lower quadrant. The infraumbilical site was closed with an 0 Vicryl suture in a Silvino-Tyree in a jliqmi-te-ceiac fashion. Incisions were closed with 4 O Vicryl in a subcuticu lar interrupted fashion. Skin glue was applied. Patient tolerated the procedure well.
[2022-12-18] MEDS: fentaNYL 50 mcg/mL INJ 2mL IVP ×2 (09:28→09:35)
[2022-12-18] MEDS: HYDROmorphone 1 mg/mL INJ 1 mL 0.5 MG IVP ×3 (09:40→10:33)
[2022-12-18] MEDS: morphine 4 mg/mL SDV 1 mL IVP (10:13)
--- NOTE | 2022-12-18 10:29 | XR_ITS ---
WS: [id number] Portable AP upright chest, 12/18/2022 Clinical Data: post op Comparison: Portable chest, 05/18/2022 Findings: No nodules, masses or effusions are seen. The heart is normal. The pulmonary vascularity is not increased. No pneumonia or pneumothorax is seen. The aortic arch and descending thoracic aorta s how tortuosity. There is a dextroscoliosis of the thoracic spine. There are calcifications in both ax illa unchanged. XR/XR chest 1V portable [id number] Impression: Atherosclerosis.
--- NOTE | 2022-12-18 10:49 | PC.NURSE ---
Pt with significant post op pain, received orders from Dr Cristobal for dilaudid since morphine did not help. Dr Garcia updated about pain. Ordered stat cxr. Patient stated pain is 8/10 at this time. Unable to eat and drink.
[2022-12-18] MEDS: ondansetron 2 mg/ML SDV 2 mL 4 MG IVP (11:04)
[2022-12-18] MEDS: HYDROcodone-acetaminophen 10-325 mg Tablet 1 TAB PO (11:05)
--- NOTE | 2022-12-18 11:05 | PC.NURSE ---
Pain improving after dilaudid and reposition. Able to eat 4 crackers and a few sips of sprite. Will proceed with pain pill and zofran.
--- NOTE | 2022-12-18 11:33 | PC.NURSE ---
Patient sp02 staying around 86% while resting since pain is improved. Place on 2.5 L NC, 97 % now.
--- NOTE | 2022-12-18 12:31 | PC.NURSE ---
Pain much improved. Patient on RA now. Dr Garcia reviewed cxr and evaluated patient again and cleared to DC home. Patient DC instructions given and verbalized understanding. Denies needs at this time.
--- NOTE | 2022-12-18 12:52 | ANE.PACU2 ---
Inpatient post-anesthesia follow up: Airway intact: Yes Vital signs: Temperature 97.1 F Pulse Rate 66 Respiratory Rate 18 Blood Pressure 115/52 Pulse Oximetry 97 Oxygen Delivery Me thod Nasal Cannula Oxygen Flow Rate 2.5 Fraction of Inspir ed Oxygen Hydration adequate: Yes Nausea and vomiting: Yes Pain level: 1 Mental status: Baseline
== END 2022-12-18 12:50 | disposition home or self-care (01) ==
PROVIDERS: PCP Family Medicine; Visit Provider Surgery
PROC: 0WQF4ZZ Repair Abdominal Wall, Percutaneous Endoscopic Approach (ICD-10-PCS; CPT 49615; principal; 2022-12-18 07:00)
PROC: (CPT 49650; 2022-12-18 07:00)
DX: K40.91 Unilateral inguinal hernia, without obstruction or gangrene, recurrent (principal); K40.90 Unilateral inguinal hernia, without obstruction or gangrene, not specified as recurrent; K43.2 Incisional hernia without obstruction or gangrene; E03.9 Hypothyroidism, unspecified
CPT/HCPCS: 49615; 49650; 49651; 51702; 71045; C1781; J0131; J0690; J1100; J1170; J2250; J2270; J2370; J2405; J2704; J3010; J7030

== ENCOUNTER → 2022-12-30 09:20 | Outpatient (BNVA) | payer MEDICARE, SELFPAY | PROVIDERS: PCP Family Medicine; Visit Provider Surgery | DX: Z98.890 Other specified postprocedural states (principal); Z87.19 Personal history of other diseases of the digestive system | CPT/HCPCS: 99024 ==

== ENCOUNTER 2023-04-21 20:41 | Emergency (ER) | payer MEDICARE, SELFPAY ==
[2023-04-21 21:12] VITALS: BP 108/73; PULSE 81; RESP 18; TEMP 36.8; O2SAT 97; BMI 27.9
--- NOTE | 2023-04-21 21:18 | ED_ITS ---
HPI - Skin/Abscess/Foreign Bdy General: Chief complaint: Animal Bite Stated complaint: Left Calk spider Bite Time Seen by Provider: 04/21/23 20:42 Source: patient Mode of arrival: ambulatory Limitations: no limitations History of Present Illness: Patient is a 58-year-old female presents to ED today with a complaint of a concern for spider bite/worsening infection to her left leg. Patient states on Thursday (04/17) she noticed what looked to be a brown recluse bite to the medial aspect of her left lower extremity. She was subsequently seen at a walk-in clinic on 04/19 and placed on Bactrim. Patient states she returned to the clinic earlier today for re-evaluation because she noticed an additional area of redness proximal to the bite. Provider's note at that time felt like there had been some improvement since antibiotic initiation. Patient is here at this time stating that she has concern for sepsis as she has been septic many times previously. She arrives with stable vital signs apart from some mild hypotension. She does state her blood pressure normally is low. She has not been running fevers at home. MD complaint: insect bite/sting and abscess/boil Onset (ago): day(s) Tetanus up to date: yes Location: LLE Severity: moderate Quality: burning Pain Consistency: constant Relieving factors: none Exacerbating factors: none Context: none Associated symptoms: Reports no associated symptoms; Deny chills, fever(s), nausea or vomiting Treatments prior to arrival: antibiotic Review of Systems Const: Denies: fever(s), chills, body aches, fatigue or malaise Card: Denies: chest pain Resp: Denies: dyspnea GI: Denies: nausea or vomiting Musc: Reports: extremity pain; Denies: neck pain, back pain, joint pain, joint swelling, joint redness or joint warmth Skin/Breast: Reports: erythema Neuro: Denies: numbness in extremities, weakness in extremities or sensory changes PFSH ED PFSH: Medical History Bilateral femoral hernia Chronic back pain Hidradenitis suppurativa Hypothyroid Recurrent sinusitis Surgical History History of hernia surgery History of surgery on arm fx left arm Hx of colonoscopy Hx of tubal ligation Family History Mother CAD (coronary artery disease) Lung disease Cancer parotid gland tumor breast lumps Father Cancer hepatic cancer Family/Other Cancer breast CA Social History Smoking and tobacco status: never smoked Alcohol intake: never Substance/Drug Use: current Substance/Drug use frequency: daily Other substance/drug use details: medical card Lives independently: Yes Marital status: Current occupational status: disabled Female Reproductive History: Date of menopause: 07/16/16 Physical Exam Const: COMMON NORMALS: no acute distress, average body habitus, patient jonh ented x3, no limitations, healthy appearing, alert and well nourished Lymph: LYMPHATIC: no lymphadenopathy noted Resp: COMMON NORMALS: normal respiratory effort and clear to auscultation bilaterally AUSCULTATION: clear to auscultation bilaterally Cardio: COMMON NORMALS: regular rate and regular rhythm RATE: regular rate RHYTHM: regular rhythm Extremity: COMMON NORMALS: full ROM, capillary refill normal, no joint enlargement, no clubbing, cyanosis or edema, no calf tenderness and no pedal edema GENERAL: Yes normal exam except as noted LEFT LOWER EXTREMITY: Yes lower leg OTHER: Patient has an area of erythema measuring approximately 4 inches or so to the medial aspect of her left lower extremity. There is central possible bite-like lesion. There is no skin necrosis or hemorrhage noted. Edematous with a very small amount of fluctuance appreciated. No drainage. Patient has no lymphangitic streaking. She does have an additional area of erythema proximal and anterior that measures approximately 3 inches or so with no underlying fluctuance, induration, or edema. Bedside ultrasound performed by mt shows a small tracking cavity with fluid and debris directly underneath central bite like lesion. This was incised and drained. Bloody/purulent drainage expressed with culture obtained. She does have about an inch long cavity that was packed. Neuro: COMMON NORMALS: patient oriented x3, moves all extremities, no focal motor deficits and no sensory deficits noted SENSORIUM/ORIENTATION: Yes alert Procedures Abscess I/D Site: lower extremity Side (if applicable): left Local Anesthetic: lidocaine 2% Amount of anesthesia used (mL): 4.0 Technique: incised with #11 blade Amount of fluid expressed (mL): 5.0 Irrigation: No Packing used?: plain Course Vital Signs: Vital signs: Vital Signs Temperature 98.3 F 04/21/23 21:12 Pulse Rate 81 04/21/23 21:12 Respiratory Rate 18 04/21/23 21:12 Blood Pressure 108/73 04/21/23 21:12 Pulse Oximetry 97 04/21/23 21:12 Oxygen Delivery Me thod Room Air 04/21/23 21:12 MDM - Skin/Abscess/Foreign Bdy Medicial Decision Making Small abscess formation that was drained. Wound/abscess culture obtained. Her vital signs are stable. She has a normal white count. Normal CRP and normal lactate. At this time I have zero concerns for sepsis. I will go ahead and increase her Bactrim to 2 tabs twice daily. She was given a dose of IV vancomycin prior to discharge. Strict return ED precautions given. Otherwise I would like primary care to re-evaluate her in approximately 48 hours. Lab Data 04/21/23 21:45 04/21/23 21:45 Laboratory Results WBC 6.84 10^3/uL (3.29-11.43) 04/21/23 21:45 RBC 3.96 10^6/uL (3.85-5.65) 04/21/23 21:45 Hgb 12.70 g/dL (11.27-16.99) 04/21/23 21:45 Hct 37.8 % (36-47) 04/21/23 21:45 MCV 95.5 fl (85-98) 04/21/23 21:45 MCH 32.1 pg (27-33) 04/21/23 21:45 MCHC 33.6 g/dL (30-55) 04/21/23 21:45 RDW 13.1 % (12.1-15.1) 04/21/23 21:45 Plt Count 229 10^3/cmm (157-399) 04/21/23 21:45 MPV 11.0 fL (7.4-10.4) H 04/21/23 21:45 Neut % (Auto) 61.0 % 04/21/23 21:45 Lymph % (Auto) 26.8 % 04/21/23 21:45 Mayes % (Auto) 8.3 % 04/21/23 21:45 Eos % (Auto) 3.2 % 04/21/23 21:45 Baso % (Auto) 0.6 % 04/21/23 21:45 Neut # (Auto) 4.17 10^3/uL (1.8-7.7) 04/21/23 21:45 Lymph # (Auto) 1.8 10^3/uL (0.8-4.8) 04/21/23 21:45 Mayes # (Auto) 0.6 10^3/uL (0.2-0.9) 04/21/23 21:45 Eos # (Auto) 0.2 10^3/uL (0.0-0.8) 04/21/23 21:45 Baso # (Auto) 0.0 10^3/uL (0.0-0.1) 04/21/23 21:45 Nucleated RBC % (auto) 0 % 04/21/23 21:45 Nucleated RBCs # 0.0 /100WBC 04/21/23 21:45 Sodium 138 mmol/L (136-145) 04/21/23 21:45 Potassium 3.8 mmol/L (3.5-5.1) 04/21/23 21:45 Chloride 105 mmol/L (98-107) 04/21/23 21:45 Carbon Dioxide 23 mmol/L (22-29) 04/21/23 21:45 Anion Gap 13.8 (5-19) 04/21/23 21:45 BUN 11 mg/dL (8-23) 04/21/23 21:45 Creatinine 0.7 mg/dL (0.5-0.9) 04/21/23 21:45 GFR Calculation 85.4 mL/min (90-130) L 04/21/23 21:45 Glucose 121 mg/dL (65-115) H 04/21/23 21:45 Calculated Osmolality 287 mOsm/kg (285-295) 04/21/23 21:45 Lactic Acid 1.0 mmol/L (0.5-2.2) 04/21/23 21:45 Calcium 9.1 mg/dL (8.5-10.5) 04/21/23 21:45 Total Bilirubin 0.5 mg/dL (0.15-1.2) 04/21/23 21:45 AST 14 U/L (0-32) 04/21/23 21:45 ALT 8 U/L (0-33) 04/21/23 21:45 Alkaline Phosphatase 76 U/L (35-105) 04/21/23 21:45 C-Reactive Protein 3.7 mg/L (0.0-4.9) 04/21/23 21:45 Total Protein 6.8 g/dL (6.6-8.7) 04/21/23 21:45 Albumin 4.3 g/dL (3.5-5.2) 04/21/23 21:45 Globulin 2.5 g/dL (1.3-4.6) 04/21/23 21:45 No radiology studies performed this visit Discharge Plan Discharge Patient Disposition: Home Clinical Impression: Cellulitis and abscess of left leg Condition: Stable Prescriptions: Changed Bactrim DS 800-160 mg tablet 2 tab PO BID 7 Days Qty: 28 0RF No Action medical marijuana inhalation PRN PRN (Reason: Pain) mupirocin 2 % ointment 1 applic topical TID 10 Days Qty: 22 0RF Discharge Orders: Discharge ED (Routine); Ordered 04/21/23 Ordered By: Diya Nuñez Referrals: Gordon Araiza MD [Primary Care Provider] - Activity Restrictions/Additional Instructions: As we discussed I would like somebody to re-evaluate your wound in 48 hours. This may be done through primary care or the emergency department. As we discussed you need to return to the emergency department even sooner than that if redness continues to worsen. As we discussed I am changing your antibiotic to 2 tablets twice a day. You have been provided a new prescription for this. Provider will determine if packing needs to be removed at re-evaluation appointment. Coding Level of Care Code ED [employer]st for Grzegorz Castro
[2023-04-21 21:55] LABS: Basophils % 0.6 %; Eosinophils # 0.2 10^3/uL (0.0-0.8); Eosinophils % 3.2 %; Hematocrit 37.8 % (36-47); Lymphocytes # 1.8 10^3/uL (0.8-4.8); Lymphocytes % 26.8 %; Mean Corpuscular HGB Conc 33.6 g/dL (30-55); Mean Corpuscular Hemoglobin 32.1 pg (27-33); Mean Corpuscular Volume 95.5 fl (85-98); Monocytes # 0.6 10^3/uL (0.2-0.9); Monocytes % 8.3 %; Neutrophils # 4.17 10^3/uL (1.8-7.7); Nucleated Red Blood Cells % 0 %; Platelet Count 229 10^3/cmm (157-399); Red Blood Count 3.96 10^6/uL (3.85-5.65); Red Cell Distribution Width 13.1 % (12.1-15.1); White Blood Count 6.84 10^3/uL (3.29-11.43)
[2023-04-21] MEDS: sodium chloride 0.9% 1,000 ML 999 ML IV (22:09)
[2023-04-21 22:11] LABS: Alanine Aminotransferase 8 U/L (0-33); Albumin Level 4.3 g/dL (3.5-5.2); Alkaline Phosphatase 76 U/L (35-105); Anion Gap 13.8 (5-19); Aspartate Amino Transferase 14 U/L (0-32); Blood Urea Nitrogen 11 mg/dL (8-23); C Reactive Protein 3.7 mg/L (0.0-4.9); Calcium 9.1 mg/dL (8.5-10.5); Carbon Dioxide 23 mmol/L (22-29); Chloride 105 mmol/L (98-107); Globulin 2.5 g/dL (1.3-4.6); Glomerular Filtration Rate 85.4 mL/min (90-130); Glucose 121 mg/dL (65-115); Osmolality Calculated 287 mOsm/kg (285-295); Potassium 3.8 mmol/L (3.5-5.1); Sodium 138 mmol/L (136-145); Total Bilirubin 0.5 mg/dL (0.15-1.2); Total Protein 6.8 g/dL (6.6-8.7)
[2023-04-21] MEDS: vancomycin 1,000 MG in sodium chloride 0.9% 250 ML 250 MG IV (22:32)
[2023-04-21 23:45] VITALS: BP 95/50; PULSE 62; O2SAT 96
== END 2023-04-22 00:10 | disposition home or self-care (01) ==
PROVIDERS: Emergency Provider Physician Assistant; PCP Family Medicine
DX: L03.116 Cellulitis of left lower limb (principal); L02.416 Cutaneous abscess of left lower limb
CPT/HCPCS: 10060; 36415; 80053; 83605; 85025; 86140; 87040; 87070; 87075; 87077; 87186; 87205; 96365; 99284; J3370; J7030; J7050

== ENCOUNTER 2023-05-01 22:40 | Emergency (ER) | payer MEDICARE, SELFPAY ==
[2023-05-01 22:41] VITALS: BP 141/66; PULSE 82; RESP 20; TEMP 36.6; O2SAT 95; BMI 27.3
--- NOTE | 2023-05-01 23:08 | CTR_ITS ---
PROCEDURE INFORMATION: Exam: CT Abdomen And Pelvis With Contrast Exam date and time: 05/01/2023 11:39 PM Age: 58 years old Clinical indication: Nausea and vomiting; Abdominal pain; Generalized; Prior surgery; Surgery date: 6+ months; Surgery type: Hernia repair. Tubal; Patient HX: Abd and back pain with n/v and fever; Additional info: Vomtiing, back pain, abd pain TECHNIQUE: Imaging protocol: Computed tomography of the abdomen and pelvis with contrast. Radiation optimization: All CT scans at this facility use at least one of these dose optimization techniques: automated exposure control; mA and/or kV adjustment per patient size (includes targeted exams where dose is matched to clinical indication); or iterative reconstruction. Contrast material: OMNI 350; Contrast volume: 100 ml; Contrast route: INTRAVENOUS (IV); REPORTING DATA: Count of CT and Cardiac NM exams in prior 12 months: This patient has received 0 known CTs and 0 known cardiac nuclear medicine studies in the 12 months prior to the current study. COMPARISON: CR (CHEST, ) 05/01/2023 11:14 PM RADIATION DOSE METRICS: Total DLP (mGy-cm): 356.63 FINDINGS: Liver: Hepatic steatosis. Gallbladder and bile ducts: Gallbladder is somewhat prominent, ultrasound could further evaluate this as clinically indicated. Pancreas: Chronic appearing pancreatic calcifications. Spleen: Normal. No splenomegaly. Adrenal glands: Normal. No mass. Kidneys and ureters: Normal. No hydronephrosis. Stomach and bowel: Prominent fluid in the stomach and small bowel may reflect a gastroenteritis. Appendix: No evidence of appendicitis. Intraperitoneal space: Unremarkable. No free air. No significant fluid collection. Vasculature: Unremarkable. No abdominal aortic aneurysm. Lymph nodes: Unremarkable. No enlarged lymph nodes. Urinary bladder: Unremarkable as visualized. Reproductive: Unremarkable as visualized. Bones/joints: Unremarkable. No acute fracture. Soft tissues: Unremarkable. CT/CT abdomen pelvis w con* [id number] IMPRESSION: 1. Prominent fluid in the stomach and small bowel may reflect a gastroenteritis. 2. Hepatic steatosis. 3. Chronic appearing pancreatic calcifications. 4. Gallbladder is somewhat prominent, ultrasound could further evaluate this as clinically indicated.
--- NOTE | 2023-05-01 23:08 | XRR_ITS ---
PROCEDURE INFORMATION: Exam: XR Chest Exam date and time: 05/01/2023 11:14 PM Age: 58 years old Clinical indication: Patient HX: Fever. ; Additional info: Back pain, fever TECHNIQUE: Imaging protocol: Radiologic exam of the chest. Views: 1 view. COMPARISON: CR XR chest 1V portable [id number] 12/18/2022 9:58 AM FINDINGS: Lungs: See Heart/Mediastinum finding. Pleural spaces: Unremarkable. No pleural effusion. No pneumothorax. Heart/Mediastinum: Mild cardiomegaly, negative for infiltrate. Bones/joints: Unremarkable. XR/XR chest 1V portable [id number] IMPRESSION: Mild cardiomegaly, negative for infiltrate.
[2023-05-01] MEDS: ketorolac 30 mg/mL INJ 15 MG IVP (23:22)
[2023-05-01 23:23] VITALS: RESP 18
[2023-05-01] MEDS: morphine 4 mg/mL SDV 1 mL IVP (23:23)
[2023-05-01 23:24] LABS: Basophils % 0.4 %; Hematocrit 39.9 % (36-47); Lymphocytes # 0.4 10^3/uL (0.8-4.8); Lymphocytes % 5.5 %; Mean Corpuscular HGB Conc 34.1 g/dL (30-55); Mean Corpuscular Hemoglobin 31.8 pg (27-33); Mean Corpuscular Volume 93.2 fl (85-98); Mean Platelet Volume 9.9 fL (7.4-10.4); Monocytes # 0.4 10^3/uL (0.2-0.9); Monocytes % 5.1 %; Neutrophils # 6.42 10^3/uL (1.8-7.7); Neutrophils % 88.4 %; Nucleated Red Blood Cells % 0 %; Platelet Count 282 10^3/cmm (157-399); Red Blood Count 4.28 10^6/uL (3.85-5.65); Red Cell Distribution Width 12.4 % (12.1-15.1); White Blood Count 7.26 10^3/uL (3.29-11.43)
[2023-05-01] MEDS: ondansetron 2 mg/ML SDV 2 mL 4 MG IVP (23:24)
[2023-05-01 23:41] LABS: Lactic Sepsis W/Reflex 1.7 mmol/L (0.5-2.2)
[2023-05-01] MEDS: iohexol 350 mg/mL 500 mL Btl (per mL) IV (23:41)
[2023-05-01 23:42] LABS: Alanine Aminotransferase 12 U/L (0-33); Albumin Level 4.8 g/dL (3.5-5.2); Alkaline Phosphatase 89 U/L (35-105); Anion Gap 20.6 (5-19); Aspartate Amino Transferase 19 U/L (0-32); Blood Urea Nitrogen 16 mg/dL (8-23); Calcium 9.8 mg/dL (8.5-10.5); Carbon Dioxide 20 mmol/L (22-29); Chloride 100 mmol/L (98-107); Globulin 2.6 g/dL (1.3-4.6); Glomerular Filtration Rate 63.9 mL/min (90-130); Glucose 151 mg/dL (65-115); Magnesium 1.7 mg/dL (1.7-2.3); Osmolality Calculated 288 mOsm/kg (285-295); Potassium 3.6 mmol/L (3.5-5.1); Sodium 137 mmol/L (136-145); Total Bilirubin 0.4 mg/dL (0.15-1.2); Total Protein 7.4 g/dL (6.6-8.7)
--- NOTE | 2023-05-01 23:49 | ECG_ITS ---
[facility] Test Date: 2023-05-01 Pat Name: Peri Johnson Department: Room: Gender: Female Property Adjuster: : 1965 Requested By: Shay Johnson Order Number: [id number] Jenna MD: Jana Cochran M.D. Measurements Intervals [place] Rate: 85 P: 63 IL: 150 QRS: 48 QRSD: 98 T: -7 QT: 385 QTc: 460 Interpretive Statements SINUS RHYTHM POSSIBLE LEFT ATRIAL ENLARGEMENT [-0.1mV P-WAVE IN V1/V2] POSSIBLE RIGHT VENTRICULAR CONDUCTION DELAY [RSR (QR) IN V1/V2] ST DEVIATION AND MODERATE T-WAVE ABNORMALITY, CONSIDER ANTEROLATERAL ISCHEMIA [-0.1+ mV T-WAVE IN V3-V6] ST DEVIATION AND MODERATE T-WAVE ABNORMALITY, CONSIDER INFERIOR ISCHEMIA [-0.1+ mV T-WAVE IN II/aVF] No previous ECG available for comparison Electronically Signed On 05-03-2023 10:59:06 CDT by Jana Cochran M.D. [email or web address]
[2023-05-02 00:05] LABS: Glucose Urine UA Norm (Normal); Protein Urine 2+ (Negative); Specific Gravity, Urine 1.015 (1.005-1.030); Urine Appearance Cloudy (CLEAR); Urine Color Amber (Yellow); pH Urine 7 (5-7)
[2023-05-02 00:06] LABS: Add Urine Culture? No; Add Urine Microscopic? YES; Amorphous Sediment Urine 1+ /hpf; Bacteria Urine TRACE /hpf; Bilirubin Urine 1+ (Negative); Blood Urine Neg (Negative); Calcium Oxalate Crystals Urine 0-4 /hpf; Ketones Urine 3+ (Negative); Leukocyte Esterase Urine 1+ (Negative); Mucus Urine 3+ /hpf; Nitrate Urine Negative (Negative); RBC Urine RARE /hpf (0-2); Squamous Epithelial Cell Urine 15-25 /hpf (0-5); Urobilinogen Urine 8 mg/dL (Negative); WBC Urine RARE /hpf (0-5)
--- NOTE | 2023-05-02 00:07 | W.ED.NAVMDI ---
HPI - Nausea/Vomiting/Diarrhea General: Chief complaint: Nausea/Vomiting/Diarrhea Stated complaint: NAUSEA Time Seen by Provider: 05/01/23 22:44 History of Present Illness: 58-year-old female complaining of thoracolumbar junction back pain, abdominal pain, and vomiting. She notes that she has been sick for a couple of days. She has vomited multiple times. No fever. She has had chills. No significant cough. No chest pain. She notes that she usually uses Medical marijuana for pain management, and has not been able to use this in a couple of days due to vomiting, and has had a significant increase in pain. She says that she had an abscess drained on her leg a couple of weeks ago, and is on the tail end of her antibiotics for this. Associated nausea: Yes Associated symtoms: Reports anxiety and nausea; Denies chest pain, headache(s) or palpitations Review of Systems Const: Reports: chills, body aches and change in appetite; Denies: fever(s) ENMT: Denies: throat pain Card: Denies: chest pain or palpitations Resp: Denies: dyspnea, productive cough or non-productive cough GI: Reports: abdominal pain, nausea and vomiting; Denies: diarrhea Musc: Reports: back pain; Denies: extremity pain Skin/Breast: Denies: rash Neuro: Denies: headache(s) Psych: Reports: anxiety PFSH ED PFSH: Medical History Bilateral femoral hernia Chronic back pain Hidradenitis suppurativa Hypothyroid Recurrent sinusitis Surgical History History of hernia surgery History of surgery on arm fx left arm Hx of colonoscopy Hx of tubal ligation Family History Mother CAD (coronary artery disease) Lung disease Cancer parotid gland tumor breast lumps Father Cancer hepatic cancer Family/Other Cancer breast CA Social History Smoking and tobacco/nicotine status: never used tobacco/nicotine Alcohol intake: never Substance/Drug Use: current Substance/Drug use frequency: daily Other substance/drug use details: medical card Lives independently: Yes Marital status: Current occupational status: disabled Female Reproductive History: Date of menopause: 07/16/16 Physical Exam Const: GENERAL APPEARANCE: in distress, anxious, ill appearing (Mildly) and frail appearing (For age) HENMT: COMMON NORMALS: normocephalic, atraumatic and Normal external nose present HEAD & SCALP: normocephalic and atraumatic FACE & SINUS: normal facial exam and face symmetric NOSE: Normal external nose present Eye: COMMON NORMALS: Equal, round and reactive pupils present and EOMs intact bilaterally PUPIL: Yes Equal, round and reactive pupils present Neck/C-Spine: GENERAL: Yes trachea midline Chest: CHEST: Yes Symmetrical chest wall rise Resp: COMMON NORMALS: normal respiratory effort, No retractions, No use of accessory muscles and clear to auscultation bilaterally AUSCULTATION: clear to auscultation bilaterally Cardio: COMMON NORMALS: regular rate and regular rhythm RATE: regular rate RHYTHM: regular rhythm GI: COMMON NORMALS: Normal to inspection, nondistended, normoactive bowel sounds present PALPATION: Yes Tenderness to palpation present (GI) (Diffusely) Back/Pelvis: THORACIC SPINE/UPPER BACK: No thoracic spinal tenderness LUMBAR SPINE/LOWER BACK: No lumbar spinal tenderness Extremity: COMMON NORMALS: no pedal edema Neuro: STUART COMA SCALE: document GCS findings Stuart coma scale eye opening: Spontaneous [place] coma scale verbal response: Orientated [place] coma scale motor response: Obey commands [place] coma scale total score: 15 SENSORY EXAM: Yes extremities (intact) Psych: COMMON NORMALS: speech normal SPEECH: Yes normal speech Skin: COMMON NORMALS: no rashes or lesions noted GENERAL SKIN EXAM: no rashes or lesions noted Course Vital Signs: Vital signs: Vital Signs Temperature 97.9 F 05/01/23 22:41 Pulse Rate 73 05/02/23 02:23 Respiratory Rate 16 05/02/23 02:23 Blood Pressure 136/99 05/02/23 02:23 Pulse Oximetry 99 05/02/23 02:23 Oxygen Delivery Me thod Room Air 05/02/23 00:33 MDM - Nausea/Vomiting/Diarrhea Medical Decision Making Patient presenting with mid back pain, Vomiting and diarrhea. White blood cell count is 7.6. BMP is not remarkable. CRP is only 3. CT shows gastroenteritis. Chest x-ray is negative for acute change. Urinalysis is negative. Respiratory panel was positive for COVID-19. She will be placed on Paxlovid, antiemetics, and pain medication. She will follow-up as an outpatient, to return if worsening. Lab Data 05/01/23 23:05/01/23 23: Radiology Impressions Abdomen/Pelvis CT 05/01/23 23: IMPRESSION: 1. Prominent fluid in the stomach and small bowel may reflect a gastroenteritis. 2. Hepatic steatosis. 3. Chronic appearing pancreatic calcifications. 4. Gallbladder is somewhat prominent, ultrasound could further evaluate this as clinically indicated. Chest X-Ray 05/01/23: IMPRESSION: Mild cardiomegaly, negative for infiltrate. Laboratory Results WBC 7.26 10^3/uL (3.29-11.43) 05/01/23: RBC 4.28 10^6/uL (3.85-5.65) 05/01/23 23: Hgb 13.60 g/dL (11.27-16.99) 05/01/23: Hct 39.9 % (36-47) 05/01/23 23: MCV 93.2 fl (85-98) 05/01/23 23: MCH 31.8 pg (27-33) 05/01/23 23: MCHC 34.1 g/dL (30-55) 05/01/23 23: RDW 12.4 % (12.1-15.1) 05/01/23 23: Plt Count 282 10^3/cmm (157-399) 05/01/23 23: MPV 9.9 fL (7.4-10.4) 05/01/23 23: Neut % (Auto) 88.4 % 05/01/23 23: Lymph % (Auto) 5.5 % 05/01/23 23: [place] % (Auto) 5.1 % 05/01/23 23: Eos % (Auto) 0.0 % 05/01/23 23: Baso % (Auto) 0.4 % 05/01/23 23: Neut # (Auto) 6.42 10^3/uL (1.8-7.7) 05/01/23 23: Lymph # (Auto) 0.4 10^3/uL (0.8-4.8) L 05/01/23 23:19 [place] # (Auto) 0.4 10^3/uL (0.2-0.9) 05/01/23 23:19 Eos # (Auto) 0.0 10^3/uL (0.0-0.8) 05/01/23 23:19 Baso # (Auto) 0.0 10^3/uL (0.0-0.1) 05/01/23 23:19 Nucleated RBC % (auto) 0 % 05/01/23 23:19 Nucleated RBCs # 0.0 /100WBC 05/01/23 23:19 Sodium 137 mmol/L (136-145) 05/01/23 23:19 Potassium 3.6 mmol/L (3.5-5.1) 05/01/23 23:19 Chloride 100 mmol/L (98-107) 05/01/23 23:19 Carbon Dioxide 20 mmol/L (22-29) L 05/01/23 23:19 Anion Gap 20.6 (5-19) H 05/01/23 23:19 BUN 16 mg/dL (8-23) 05/01/23 23:19 Creatinine 0.9 mg/dL (0.5-0.9) 05/01/23 23:19 GFR Calculation 63.9 mL/min (90-130) L 05/01/23 23:19 Glucose 151 mg/dL (65-115) H 05/01/23 23:19 Calculated Osmolality 288 mOsm/kg (285-295) 05/01/23 23:19 Lactic Acid 1.7 mmol/L (0.5-2.2) 05/01/23 23:19 Calcium 9.8 mg/dL (8.5-10.5) 05/01/23 23:19 Magnesium 1.7 mg/dL (1.7-2.3) 05/01/23 23:19 Total Bilirubin 0.4 mg/dL (0.15-1.2) 05/01/23 23:19 AST 19 U/L (0-32) 05/01/23 23:19 ALT 12 U/L (0-33) 05/01/23 23:19 Alkaline Phosphatase 89 U/L (35-105) 05/01/23 23:19 Troponin T Baseline < 6 ng/L (0-10) 05/02/23 00:00 Troponin T 120 Minute 7.32 ng/L (0-10) 05/02/23 01:03 Delta Troponin T 1.30397 ABS# (0-10) 05/02/23 01:03 C-Reactive Protein 3.0 mg/L (0.0-4.9) 05/01/23 23:19 Total Protein 7.4 g/dL (6.6-8.7) 05/01/23 23:19 Albumin 4.8 g/dL (3.5-5.2) 05/01/23 23:19 Globulin 2.6 g/dL (1.3-4.6) 05/01/23 23:19 Urine Color [place] (Yellow) 05/01/23 23:45 Urine Appearance Cloudy (CLEAR) A 05/01/23 23:45 Urine pH 7 (5-7) 05/01/23 23:45 Ur Specific [place] 1.015 (1.005-1.030) 05/01/23 23:45 Urine Protein 2+ (Negative) H 05/01/23 23:45 Urine Glucose (UA) Norm (Normal) 05/01/23 23:45 Urine Ketones 3+ (Negative) H 05/01/23 23:45 Urine Blood Neg (Negative) 05/01/23 23:45 Urine Nitrate Negative (Negative) 05/01/23 23:45 Urine Bilirubin 1+ (Negative) H 05/01/23 23:45 Urine Urobilinogen 8 mg/dL (Negative) H 05/01/23 23:45 Ur Leukocyte Esterase 1+ (Negative) H 05/01/23 23:45 Urine RBC Rare /hpf (0-2) 05/01/23 23:45 Urine WBC Rare /hpf (0-5) 05/01/23 23:45 Ur Squamous Epith Cells 15-25 /hpf (0-5) H 05/01/23 23:45 Calcium Oxalate Crystal 0-4 /hpf H 05/01/23 23:45 Amorphous Sediment 1+ /hpf 05/01/23 23:45 Urine Bacteria Trace /hpf (NONE) 05/01/23 23:45 Urine Mucus 3+ /hpf 05/01/23 23:45 Urine Yeast Trace /hpf 05/01/23 23:45 Nasal Influ A H1 2008 PCR Not detected (NOT DETECT) 05/01/23 23:35 Adenovirus (PCR) Not detected (NOT DETECT) 05/01/23 23:35 C. pneumoniae DNA (PCR) Not detected (NOT DETECT) 05/01/23 23:35 Coronavirus 229E (PCR) Not detected (NOT DETECT) 05/01/23 23:35 Human Metapneumovir PCR Not detected (NOT DETECT) 05/01/23 23:35 Influenza A (H1) PCR Not detected (NOT DETECT) 05/01/23 23:35 Influenza A (H3) PCR Not detected (NOT DETECT) 05/01/23 23:35 Influenza Type A (PCR) Not detected (NOT DETECT) 05/01/23 23:35 Influenza Type B (PCR) Not detected (NOT DETECT) 05/01/23 23:35 M. pneumoniae (PCR) Not detected (NOT DETECT) 05/01/23 23:35 Parainfluenza 1 (PCR) Not detected (NOT DETECT) 05/01/23 23:35 Parainfluenza 2 (PCR) Not detected (NOT DETECT) 05/01/23 23:35 Parainfluenza 3 (PCR) Not detected (NOT DETECT) 05/01/23 23:35 Parainfluenza 4 (PCR) Not detected (NOT DETECT) 05/01/23 23:35 RSV Type A (PCR) Not detected (NOT DETECT) 05/01/23 23:35 RSV Type B (PCR) Not detected (NOT DETECT) 05/01/23 23:35 Entero/Rhino (PCR) Not detected (NOT DETECT) 05/01/23 23:35 SARS-CoV-2 (PCR) Detected (NOT DETECT) A 05/01/23 23:35 All radiology interpretation(s) finalized by discharge Discharge Plan Discharge Patient Disposition: Home Clinical Impression: Chronic back pain, Gastroenteritis, COVID-19 Condition: Stable Prescriptions: New hydrocodone-acetaminophen 5-325 mg tablet 1 tab PO Q8H PRN (Reason: pain) Qty: 7 0RF ondansetron 4 mg film 4 mg PO DAILY PRN (Reason: nausea and vomiting) Qty: 10 0RF Paxlovid 300 mg (150 mg x 2)-100 mg tablets,dose pack See Rx Instructions .ROUTE .COMPLEX Qty: 30 0RF Rx Instructions: take TWO 150 mg tablets of nirmatrelvir with ONE 100 mg tablet of ritonavir twice daily for 5 days No Action medical marijuana inhalation PRN PRN (Reason: Pain) mupirocin 2 % ointment 1 applic topical TID 10 Days Qty: 22 0RF Bactrim DS 800-160 mg tablet 2 tab PO BID 7 Days Qty: 28 0RF Discharge Orders: Discharge ED (Routine); Ordered 05/02/23 Ordered By: Shay Simms Referrals: Gordon Araiza MD [Primary Care Provider] - 1-3 days Discharge Diet: Advance as tolerated and Clear Liquid Patient Instructions: Gastroenteritis (ED), COVID-19 (Coronavirus Disease 2019) (ED), Opioid Safety, Pain Management Activity Restrictions/Additional Instructions: Follow a liquid diet. You may increase your diet if no vomiting for 24 or more hours. Medication as directed. Take nausea medication scheduled every 6 hours while awake for the first 24 hours, then as needed. See your doctor next week. Return for any new or worsening symptoms. Coding Level of Care Code ED Aer[employer] Medicine Physician for Grzegorz Castro
[2023-05-02 00:25] LABS: Troponin(5th) Baseline < 6 ng/L (0-10)
[2023-05-02 00:33] VITALS: PULSE 112; O2SAT 96
[2023-05-02] MEDS: sodium chloride 0.9% 1,000 ML 999 ML IV ×2 (00:37→00:51)
[2023-05-02 01:12] VITALS: RESP 20; O2SAT 100
[2023-05-02] MEDS: morphine 4 mg/mL SDV 1 mL IVP (01:12)
[2023-05-02 01:31] LABS: Adenovirus Not Detected (NOT DETECT); Chlamydia Pneumoniae Not Detected (NOT DETECT); Coronavirus 229E,HKU1,NL63,OC4 Not Detected (NOT DETECT); Human Metapneumovirus Not Detected (NOT DETECT); Human Rhinovirus/Enterovirus Not Detected (NOT DETECT); Influenza A Not Detected (NOT DETECT); Influenza A H1 Not Detected (NOT DETECT); Influenza A H1-2009 Not Detected (NOT DETECT); Influenza A H3 Not Detected (NOT DETECT); Influenza B Not Detected (NOT DETECT); Mycoplasma Pneumoniae Not Detected (NOT DETECT); Parainfluenza Virus Type 1 Not Detected (NOT DETECT); Parainfluenza Virus Type 2 Not Detected (NOT DETECT); Parainfluenza Virus Type 3 Not Detected (NOT DETECT); Parainfluenza Virus Type 4 Not Detected (NOT DETECT); Respiratory Syncytial Virus A Not Detected (NOT DETECT); Respiratory Syncytial Virus B Not Detected (NOT DETECT)
[2023-05-02 01:33] LABS: SARS-COV-2 Detected (NOT DETECT)
[2023-05-02 01:37] LABS: Troponin 5 2HR 7.32 ng/L (0-10); Troponin 5 2HR Delta 1.32001 ABS# (0-10)
[2023-05-02 02:23] VITALS: BP 136/99; PULSE 73; RESP 16; O2SAT 99
== END 2023-05-02 02:25 | disposition home or self-care (01) ==
PROVIDERS: Emergency Provider Emergency Medicine; PCP Family Medicine
DX: U07.1 COVID-19 (principal); K52.9 Noninfective gastroenteritis and colitis, unspecified; G89.29 Other chronic pain; M54.9 Dorsalgia, unspecified
CPT/HCPCS: 36415; 71045; 74177; 80053; 81001; 81003; 83605; 83735; 84484; 85025; 86140; 87486; 87581; 87633; 93005; 96374; 96375; 96376; 99285; J1885; J2270; J2405; J7030; Q9967